=== PATIENT | female | born 1960 | race African-American/Black ===

== ENCOUNTER 2017-03-08 09:17 | Day surgery (SDC) | payer OTHER ==
[2017-03-07 16:08] VITALS: BMI 32.5
[2017-03-08] MEDS ORDERED: PROPOFOL 20 ML ONE (12:06)
[2017-03-08] MEDS ORDERED: ONDANSETRON 4 MG/2 ML VIAL ONE (12:15)
[2017-03-08] MEDS ORDERED: KETOROLAC TROMETHAMINE 30 MG/1 ML VIAL ONE (12:15)
[2017-03-08] MEDS ORDERED: ceFAZolin SODIUM 1 GM VIAL ONE (12:15)
[2017-03-08] MEDS ORDERED: BUPIVACAINE HCL/PF 2.5 MG/ML - 30 ML VIAL IJ ONE (12:33)
[2017-03-08] MEDS ORDERED: BUPIVACAINE HCL/PF 0.25% (2.5MG/ML) 10 ML VIAL IJ ONE (12:42)
[2017-03-08] MEDS ORDERED: ONDANSETRON 4 MG/2 ML VIAL IVPUSH PRN (12:55)
[2017-03-08] MEDS ORDERED: oxyCODONE HCL 5 MG TABLET PO PRN (12:55)
[2017-03-08] MEDS ORDERED: LACTATED RINGERS SOLUTION 1,000 ML IV SCH (13:00)
[2017-03-08 14:23] VITALS: TEMP 98.2
[2017-03-08 15:29] VITALS: BP 124/65; PULSE 78
--- NOTE | 2017-03-12 00:09 | OP ---
DATE OF OPERATION: 03/08/2017 SURGEON: Marta Giron MD SUPERVISOR/PORT DIRECTOR: MICHELL Beckford PREOPERATIVE DIAGNOSIS: 1. Left knee medial and lateral meniscal tears. 2. Left knee cartilage injury. 3. Left knee synovitis. POSTOPERATIVE DIAGNOSIS: 1. Left knee medial and lateral meniscal tears. 2. Left knee cartilage injury. 3. Left knee synovitis. PROCEDURE: 1. Left knee arthroscopy with partial meniscectomy of medial and lateral meniscus. 2. Left knee arthroscopy with chondroplasty and abrasioplasty. 3. Left knee arthroscopy with synovectomy. CPT code 29628, 59053, 27347. FINDINGS: 1. Medial meniscus body and posterior horn tear. 2. Lateral meniscus posterior horn to central body tear. 3. Synovitis of patellofemoral, medial, lateral, and notch area. 4. Anterior grade 2 cartilage injury of the medial femoral condyle. 5. ACL and PCL intact. 6. Minor grade 2-3 cartilage injury of the lateral tibial plateau. 7. Central grade 2-4 cartilage injury of the patella and patellofemoral trochlea. PROCEDURE: Informed consent was obtained. The patient was taken to the operating room where the left lower extremity was prepped and draped in a sterile fashion. A tourniquet was placed on the left upper thigh but not inflated. Using standard arthroscopic technique, a lateral incision and portal were made which allowed for introduction of the camera into the suprapatellar bursa. This was then taken to the medial joint line where under direct visualization, a medial incision and portal were made. Excessive synovium noted in the medial, lateral, patellofemoral and notch area was removed by the up-biting shaver and Bovie cautery. This was found to bring inflammatory tissue into the joint surface, a source of joint pain and dysfunction. Probing of the medial and lateral meniscus found tears described in the findings. These were removed with an up-biting shaver and taken back to a stable rim. Grade 2-3 degenerative changes were treated with chondroplasty, removing all flaking surfaces with low setting Bovie used along the periphery. Grade 4 changes were treated with abrasion-plasty. All areas of the knee were once again re-examined. The knee was then drained. A single suture was placed on all portals. Sterile dressing was placed. The patient was transferred to the recovery room. MARTA GIRON M.D. [id number]
--- NOTE | 2017-03-12 13:31 | PATH ---
Surgical Pathology Report Patient Name: MARIO DOBSON [facility]. Rec. #: [id number] /Age/Gender: 1960 (Age: 56) / F Account: [id number] Location: [facility] Taken: 03/08/2017 Received: 03/08/2017 Reported: 03/12/2017 Physicians: Eliseo Ash M.D. Specimen(s) Received LEFT KNEE SHAVINGS Clinical History Left knee internal derangement Final Diagnosis KNEE, LEFT, ARTHROSCOPIC SHAVING: FIBROCARTILAGE WITH MYXOID DEGENERATIVE CHANGES, ALONG WITH PORTIONS OF SYNOVIUM . Electronically Signed Ajay Muniz M.D. Gross Description Received in formalin, labeled "left knee shavings," is a 4 x 4 x 0.3 cm. aggregate of [place]-yellow soft tissue fragments. A sales representative trainee portion is submitted in one cassette. [facility]/03/11/2017 [facility]/03/11/2017
== END 2017-03-08 15:20 | disposition home or self-care (01) ==
LOC: FASU 09:17
PROVIDERS: ATTEND Orthopaedic Surgery
PROC: 0SBD4ZZ Excision of Left Knee Joint, Percutaneous Endoscopic Approach (ICD-10-PCS; 2017-03-08)
PROC: 0SBD4ZZ Excision of Left Knee Joint, Percutaneous Endoscopic Approach (ICD-10-PCS; 2017-03-08)
PROC: 0SBD4ZZ Excision of Left Knee Joint, Percutaneous Endoscopic Approach (ICD-10-PCS; principal; 2017-03-08 12:28)
DX: S83.242A Other tear of medial meniscus, current injury, left knee, initial encounter (principal); S83.282A Other tear of lateral meniscus, current injury, left knee, initial encounter; S83.8X2A Sprain of other specified parts of left knee, initial encounter; M65.862 Other synovitis and tenosynovitis, left lower leg; X58.XXXA Exposure to other specified factors, initial encounter; Y93.9 Activity, unspecified; Y92.9 Unspecified place or not applicable
CPT/HCPCS: 88304-TC; 94760

== ENCOUNTER 2021-04-08 15:45 | Emergency (ER) | payer OTHER ==
[2021-04-08 16:12] VITALS: BP 180/89; PULSE 51; TEMP 98.3; BMI 32.5
== END 2021-04-08 19:12 | disposition home or self-care (01) ==
LOC: FER 15:45
DX: S00.83XA Contusion of other part of head, initial encounter (principal); W19.XXXA Unspecified fall, initial encounter; Y92.9 Unspecified place or not applicable
CPT/HCPCS: 70450-TC; 70486-TC; 72125-TC; 99284-25